=== PATIENT | female | born 1990 | race Caucasian/White ===

== ENCOUNTER → 2016-10-19 | Outpatient (CLI) | payer OTHER ==
[~2016-10-19] MED LIST: ALBUTEROL17 GM INH; AMOXICILLIN PO; AUGMENTIN PO; BACITRACIN3.5 GM OPT OD; BACTRIM DS TABL1 TA1 PO; BENTYL10 MG PO; CLARITIN D PO; CLARITIN10 MG PO; CORTISPORIN-TC10 ML OT; ERYTHROMYCIN O3.5 GM OD; ILOTYCIN1 G1 OU; LORATADINE PO; MACROBID100 MG PO; NO MEDICATIONS; OCUFLOX10 ML OS; PHENERGAN PO; PHENERGAN W/CO120 ML PO; PHENERGAN25 M1 PO; PRENATAL1 TA1 PO; PRILOSEC PO; QVAR7.3 GM INH; TYLENOL #3 PO; VIBRAMYCIN100 M1 PO; ZITHROMAX PO
--- NOTE | ~2016-10-19 | CR63 ---
[facility] A Service of [facility] & [facility] RADIOLOGY TEXT RESULTS PATIENT: ROSIO MCINTYRE LOCATION: [facility] : [birth year] UNIT #: [id number] AGE: [address]: Lisa Graham SEX: F ORDER DR: [id number] [place] [id number] O MR#: [id number] Acc #: [id number] NAME: ROSIO MCINTYRE : 1990 SEX: F STUDY DATE/TIME: 10/19/2016 8:52 UNIT: [facility] ROOM: STUDY DESCRIPTION: CR Chest 2 View Attending Physician: Lisa Graham A.P.R.N. Referring Physician: Lisa Graham A.P.R.N. Ordering Physician: Lisa Graham A.P.R.N. Primary Care Physician: Lisa Graham A.P.R.N. MEDICAL IMAGING REPORT This report is preliminary unless electronic signature is present. EXAM Chest PA and lateral, 10/19/2016 HISTORY Left-side chest pain and swelling with shortness of breath since June 2015. FINDINGS PA and lateral examination of the chest upright shows a good expansion of the parenchyma with a normal distribution of the pulmonary vascularity. There is no indication of congestion, effusion, infiltrate, tumor, or nodular density. The pleural reflections and diaphragmatic contours are normal. The cardiac silhouette and mediastinal anatomy is within normal limits. IMPRESSION Normal chest. Dictated by... Sergey Arrieta M.D. THIS IS AN ELECTRONICALLY VERIFIED REPORT Sergey Arrieta M.D. at 10/20/2016 8:00 AM HAYLIE/bruce TD: 10/19/2016 10:35 JOB #: [id number] MEDICAL IMAGING REPORT Page 1 of 1
== END | disposition home or self-care (01) ==
LOC: SRAD 08:48
DX: R07.89 Other chest pain (principal)
CPT/HCPCS: 71020

== ENCOUNTER 2017-01-08 23:56 | Emergency (ER) | payer OTHER ==
[~2017-01-08] VITALS: Ht 154.9 cm; Wt 43.1 kg
[2017-01-09] MEDS ORDERED: NO MEDICATIONS (00:18)
== END 2017-01-09 01:26 | disposition home or self-care (01) ==
LOC: SED 23:56
DX: R07.89 Other chest pain (principal); J45.909 Unspecified asthma, uncomplicated; F17.210 Nicotine dependence, cigarettes, uncomplicated; Z88.8 Allergy status to other drugs, medicaments and biological substances
CPT/HCPCS: 99283